=== PATIENT | male | born 1980 | race Caucasian/White ===

== ENCOUNTER 2020-05-13 12:59 | Outpatient (RCR) | payer OTHER | END 2020-05-16 10:07 | disposition home or self-care (01) | LOC: WSOH 12:59 | DX: M51.36 Other intervertebral disc degeneration, lumbar region (principal) ==

== ENCOUNTER 2024-01-02 08:28 | Emergency (ER) | payer SELFPAY ==
[~2024-01-02] VITALS: Ht 170.2 cm; Wt 109.1 kg
[2024-01-02 08:32] VITALS: TEMP 97.9
[2024-01-02 11:00] VITALS: BP 142/92; PULSE 72
== END 2024-01-02 11:01 | disposition home or self-care (01) ==
LOC: COL.ER 08:28
DX: S09.90XA Unspecified injury of head, initial encounter (principal); S01.01XA Laceration without foreign body of scalp, initial encounter; Z87.891 Personal history of nicotine dependence; W22.8XXA Striking against or struck by other objects, initial encounter